=== PATIENT | female | born 1960 | race Caucasian/White ===

== ENCOUNTER 2019-12-23 | Emergency (ER) | payer MEDICARE ==
[~2019-12-23] MED LIST: ACIPHEX20 MG OR; ALEVE220 MG OR; AMOXICILLIN250 M1 PO; AMOXICILLIN500 MG OR; AMOXICILLIN500 MG PO; AUGMENTIN500 MG OR; AUGMENTIN500TAB PO; AUGMENTIN875TAB PO; CELEXA20 MG OR; CELEXA20 MG PO; CELEXA40 MG OR; CIPRO500 MG OR; CIPROFLOXACN500 MG PO; CITALOPRAM10 MG PO; CLONAZEPAM0.5 MG OR; CLONAZEPAM0.5 MG PO; COMBIVENT IN; DEXILANT30 MG OR; DUONEB; DUONEB IN; DUONEB INH; ERY-TAB333 MG OR; FLEXERIL OR; GABAPENTIN100 MG OR; HYDROCO/APAP1 TA9 OR; HYDROCOD/HOM1 ML OR; KLONOPIN0.5 MG OR; LEVAQUIN750 MG PO; LORTAB 7.57.5 MG PO; LORTAB5 PO; MEDDOSEPAK OR; MEDDOSEPAK PO; NAPROSYN500 MG PO; NEBULIZE2; PREDNISONE10 MG PO; PRILOSEC20 MG/CAP PO; PRILOSEC40 MG OR; PROAIR HFA; PROAIR HFA IN; PROVENTIL HFA IN; PROVENTIL HFA INH; ROBITUSSIN AC10 ML OR; ULTRAM50 M1 PO; UNABLE TO RECONCILE; VENTOLIN HF1 IN; VENTOLIN HFA IN; VICODIN; [UNRECOGNIZED DRUG - REMARK]
[2019-12-23] MEDS ORDERED: AMOX/K CLAV875 M1 PO (23:19)
== END 2019-12-23 23:34 | disposition home or self-care (01) ==
DX: J02.9 Acute pharyngitis, unspecified (principal); J44.9 Chronic obstructive pulmonary disease, unspecified; F17.200 Nicotine dependence, unspecified, uncomplicated

== ENCOUNTER 2021-08-12 20:43 | Emergency (ER) | payer MEDICARE ==
[~2021-08-12 20:43] MED LIST changes: +AMOX/K CLAV875 M1 PO
[2021-08-13] MEDS ORDERED: KEFLEX500 MG PO (07:01)
[2021-08-13] MEDS ORDERED: ONDANSETRON4 MG PO (07:01)
[2021-08-13] MEDS ORDERED: MEDDOSEPAK PO (07:01)
== END 2021-08-12 22:08 | disposition left against medical advice (07) ==
LOC: ED 20:43 → LWOBS 22:08 → ED 22:08
DX: Z53.21 Procedure and treatment not carried out due to patient leaving prior to being seen by health care provider (principal)

== ENCOUNTER 2021-09-30 14:56 | Emergency (ER) | payer MEDICARE ==
[~2021-09-30] VITALS: Ht 172.7 cm; Wt 75.0 kg
[~2021-09-30 14:56] MED LIST changes: +KEFLEX500 MG PO; +ONDANSETRON4 MG PO
[2021-09-30 16:39] LABS: HEMATOCRIT 44.1 % (37.0-47.0); HEMOGLOBIN 15.1 g/dl (12.0-16.0); IMMATURE GRANULOCYTES 0.3 % (0.0-5.0); MEAN CELL VOLUME 99.5 fL CALC (80.0-100.0); MEAN CORPUSCULAR HGB 34.1 pG CALC (26.0-32.0); MEAN CORPUSCULAR HGB CONC 34.2 g/dL CAL (32.0-36.0); NEUT# 10.73 thou/uL (2.00-7.15); RED BLOOD COUNT 4.43 mill/uL (4.20-5.60); RED CELL DISTRI WIDTH 12.3 % (11.5-15.5)
[2021-09-30 16:52] LABS: ALBUMIN 3.5 g/dL (3.2-5.0); ALKALINE PHOSPHATASE 111 u/l (38-126); BUN 4 mg/dL (7-17); BUN/CREATININE RATIO 7 (12-20 (CALC)); CHLORIDE 85 mmol/l (95-108); CREATININE 0.6 mg/dL (0.5-1.0); GFR > 60 ML/MIN (>=60 (CALC)); GFR FOR AFR.AMER. > 60 ML/MIN (>=60 (CALC)); SGOT/AST 25 u/l (14-36); SODIUM 136 mmol/l (137-146); TOTAL PROTEIN 6.9 g/dL (6.3-8.2)
[2021-09-30 17:01] LABS: ANION GAP 10 (6-22 (CALC)); BILIRUBIN, TOTAL 0.4 mg/dL (0.0-1.4); CARBON DIOXIDE 43 mmol/l (22-30); POTASSIUM 2.4 mmol/l (3.5-5.1)
[2021-09-30 18:41] LABS: URINE BILIRUBIN - DIPSTICK NEGATIVE (NEGATIVE); URINE BLOOD DIPSTICK NEGATIVE (NEGATIVE); URINE COLOR YELLOW; URINE GLUCOSE - DIPSTICK NEGATIVE (NEGATIVE); URINE KETONE NEGATIVE (NEGATIVE); URINE PH 6.5 (4.5-8.0); URINE PROTEIN - DIPSTICK NEGATIVE (NEG-TRACE); URINE UROBILINOGEN - DIPSTICK 0.2 E.U./dL (0.2)
[2021-09-30 18:46] LABS: URINE LEUK ESTERASE SMALL (NEGATIVE); URINE NITRITE - DIPSTICK NEGATIVE (Negative)
[2021-09-30 18:56] LABS: URINE SQUAMOUS EPITHELIAL CELL FEW EPI/hpf (0-FEW)
[2021-09-30] MEDS ORDERED: KEFLEX500 MG PO (19:15)
[2021-09-30 22:11] VITALS: BP 182/91
== END 2021-09-30 22:52 | disposition home or self-care (01) ==
LOC: ED 14:56
PROVIDERS: Emergency Medicine
DX: N39.0 Urinary tract infection, site not specified (principal); E87.6 Hypokalemia; K21.9 Gastro-esophageal reflux disease without esophagitis; J44.9 Chronic obstructive pulmonary disease, unspecified; F17.200 Nicotine dependence, unspecified, uncomplicated

== ENCOUNTER 2021-10-27 08:07 | Day surgery (SDC) | payer MEDICARE ==
[~2021-10-27] VITALS: Ht 172.7 cm; Wt 57.2 kg
[~2021-10-27 08:07] MED LIST changes: +ALBUTEROL1.25 MG/3 PO; +LORTAB 1010 MG PO
[2021-10-27 10:37] VITALS: BP 139/74
== END 2021-10-27 10:43 | disposition home or self-care (01) ==
LOC: ENDO 08:07 → ORM 11:00 → ENDO 11:00
PROVIDERS: ATTEND Surgery
PROC: 0DBB8ZX Excision of Ileum, Via Natural or Artificial Opening Endoscopic, Diagnostic (ICD-10-PCS; principal; 2021-10-27)
PROC: 0DBE8ZX Excision of Large Intestine, Via Natural or Artificial Opening Endoscopic, Diagnostic (ICD-10-PCS; 2021-10-27)
DX: K52.9 Noninfective gastroenteritis and colitis, unspecified (principal); J44.9 Chronic obstructive pulmonary disease, unspecified; K21.9 Gastro-esophageal reflux disease without esophagitis; F17.210 Nicotine dependence, cigarettes, uncomplicated

== ENCOUNTER 2021-11-21 20:24 | Emergency (ER) | payer MEDICARE ==
[~2021-11-21] VITALS: Ht 172.7 cm; Wt 57.0 kg
[2021-11-21 20:30] VITALS: BP 142/79
[2021-11-21 20:57] LABS: HEMATOCRIT 44.5 % (37.0-47.0); HEMOGLOBIN 15.1 g/dl (12.0-16.0); IMMATURE GRANULOCYTES 0.4 % (0.0-5.0); MEAN CELL VOLUME 105.5 fL CALC (80.0-100.0); MEAN CORPUSCULAR HGB 35.8 pG CALC (26.0-32.0); MEAN CORPUSCULAR HGB CONC 33.9 g/dL CAL (32.0-36.0); NEUT# 5.9 thou/uL (2.00-7.15); RED BLOOD COUNT 4.22 mill/uL (4.20-5.60); RED CELL DISTRI WIDTH 13.3 % (11.5-15.5)
[2021-11-21 21:00] VITALS: BP 154/74
[2021-11-21 21:20] LABS: ALBUMIN 3.7 g/dL (3.2-5.0); ALKALINE PHOSPHATASE 136 u/l (38-126); BUN 4 mg/dL (7-17); BUN/CREATININE RATIO 10 (12-20 (CALC)); CHLORIDE 88 mmol/l (95-108); CREATININE 0.4 mg/dL (0.5-1.0); GFR > 60 ML/MIN (>=60 (CALC)); GFR FOR AFR.AMER. > 60 ML/MIN (>=60 (CALC)); POTASSIUM 3.2 mmol/l (3.5-5.1); SGOT/AST 29 u/l (14-36); SODIUM 135 mmol/l (137-146); TOTAL PROTEIN 6.8 g/dL (6.3-8.2)
[2021-11-21 21:25] LABS: ANION GAP 12 (6-22 (CALC)); CARBON DIOXIDE 38 mmol/l (22-30)
[2021-11-21 21:27] LABS: BILIRUBIN, TOTAL 0.2 mg/dL (0.0-1.4)
[2021-11-21 21:32] LABS: MYOGLOBIN 21 ng/mL (0 - 62)
[2021-11-21 21:51] LABS: TSH, 3RD GENERATION 0.91 uIU/mL (0.47 - 4.68)
[2021-11-21 21:52] LABS: URINE BILIRUBIN - DIPSTICK NEGATIVE (NEGATIVE); URINE BLOOD DIPSTICK NEGATIVE (NEGATIVE); URINE COLOR YELLOW; URINE GLUCOSE - DIPSTICK NEGATIVE (NEGATIVE); URINE KETONE NEGATIVE (NEGATIVE); URINE LEUK ESTERASE MODERATE (NEGATIVE); URINE NITRITE - DIPSTICK NEGATIVE (Negative); URINE PH 6.5 (4.5-8.0); URINE PROTEIN - DIPSTICK NEGATIVE (NEG-TRACE); URINE SPECIFIC GRAVITY <=1.005; URINE UROBILINOGEN - DIPSTICK 0.2 E.U./dL (0.2)
[2021-11-21 21:59] LABS: URINE RBC 0-2 RBC/hpf (0-5); URINE SQUAMOUS EPITHELIAL CELL FEW EPI/hpf (0-FEW)
[2021-11-21 23:00] VITALS: BP 167/87
[2021-11-21 23:30] VITALS: BP 172/92
[2021-11-22] VITALS: BP 174/83
[2021-11-22 00:30] VITALS: BP 161/84
[2021-11-22 00:44] VITALS: BP 161/84
== END 2021-11-22 00:49 | disposition home or self-care (01) ==
LOC: ED 20:24
PROVIDERS: Emergency Medicine
DX: E87.6 Hypokalemia (principal); J44.9 Chronic obstructive pulmonary disease, unspecified; K52.9 Noninfective gastroenteritis and colitis, unspecified; K21.9 Gastro-esophageal reflux disease without esophagitis; F17.200 Nicotine dependence, unspecified, uncomplicated

== ENCOUNTER 2021-12-01 07:05 | Day surgery (SDC) | payer MEDICARE ==
[~2021-12-01 07:05] MED LIST changes: +MULTI FOR HER PO; +OS-CAL 500500 M1 PO; +POTASSIUM99 MG PO
[2021-12-01 09:23] VITALS: BP 139/65
== END 2021-12-01 09:26 | disposition home or self-care (01) ==
LOC: ENDO 07:05 → ORM 08:55 → ENDO 08:55 → ORM 09:45
PROVIDERS: ATTEND Surgery
PROC: 0DJ08ZZ Inspection of Upper Intestinal Tract, Via Natural or Artificial Opening Endoscopic (ICD-10-PCS; principal; 2021-12-01)
DX: R13.10 Dysphagia, unspecified (principal); K57.10 Diverticulosis of small intestine without perforation or abscess without bleeding; K29.70 Gastritis, unspecified, without bleeding; K44.9 Diaphragmatic hernia without obstruction or gangrene

== ENCOUNTER 2022-01-25 19:16 | Emergency (ER) | payer MEDICARE ==
[2022-01-25] VITALS (8 sets, daily range): BP systolic 107–158; BP diastolic 60–96
[~2022-01-25] VITALS: Ht 172.7 cm; Wt 59.0 kg
[2022-01-25 20:43] LABS: URINE BLOOD DIPSTICK NEGATIVE (NEGATIVE); URINE GLUCOSE - DIPSTICK NEGATIVE (NEGATIVE); URINE KETONE TRACE mg/dL (NEGATIVE); URINE LEUK ESTERASE NEGATIVE (NEGATIVE); URINE PH 5.5 (4.5-8.0); URINE PROTEIN - DIPSTICK 30 mg/dL (NEG-TRACE); URINE SPECIFIC GRAVITY 1.025
[2022-01-25 20:44] LABS: HEMATOCRIT 45.9 % (37.0-47.0); HEMOGLOBIN 15.6 g/dl (12.0-16.0); IMMATURE GRANULOCYTES 0.2 % (0.0-5.0); MEAN CELL VOLUME 101.5 fL CALC (80.0-100.0); MEAN CORPUSCULAR HGB 34.5 pG CALC (26.0-32.0); NEUT# 7.42 thou/uL (2.00-7.15); RED BLOOD COUNT 4.52 mill/uL (4.20-5.60); RED CELL DISTRI WIDTH 11.3 % (11.5-15.5)
[2022-01-25 20:47] LABS: URINE BILIRUBIN - DIPSTICK SMALL (NEGATIVE); URINE COLOR DK. YELLOW; URINE NITRITE - DIPSTICK NEGATIVE (Negative)
[2022-01-25 20:49] LABS: URINE RBC 0-2 RBC/hpf (0-5); URINE SQUAMOUS EPITHELIAL CELL FEW EPI/hpf (0-FEW)
[2022-01-25 21:00] LABS: ALBUMIN 3.3 g/dL (3.2-5.0); AMYLASE 58 u/l (30-110); ANION GAP 12 (6-22 (CALC)); BUN 4 mg/dL (7-17); BUN/CREATININE RATIO 8 (12-20 (CALC)); CARBON DIOXIDE 37 mmol/l (22-30); CHLORIDE 89 mmol/l (95-108); CREATININE 0.5 mg/dL (0.5-1.0); GFR > 60 ML/MIN (>=60 (CALC)); GFR FOR AFR.AMER. > 60 ML/MIN (>=60 (CALC)); LIPASE 121 u/l (23-300); POTASSIUM 2.7 mmol/l (3.5-5.1); SODIUM 134 mmol/l (137-146); TOTAL PROTEIN 6.3 g/dL (6.3-8.2)
[2022-01-25 21:01] LABS: ALKALINE PHOSPHATASE 209 u/l (38-126); BILIRUBIN, TOTAL 0.3 mg/dL (0.0-1.4); SGOT/AST 80 u/l (14-36)
[2022-01-25] MEDS ORDERED: POTASSIUM CHLO20 ME1 PO (23:49)
[2022-01-25] MEDS ORDERED: PROMETHAZINE HY25 M1 PO (23:49)
[2022-01-26] VITALS: BP 138/73
== END 2022-01-26 | disposition home or self-care (01) ==
LOC: ED 19:16
PROVIDERS: Family Medicine
DX: R11.2 Nausea with vomiting, unspecified (principal); E87.6 Hypokalemia; J44.9 Chronic obstructive pulmonary disease, unspecified; K21.9 Gastro-esophageal reflux disease without esophagitis; F17.200 Nicotine dependence, unspecified, uncomplicated; Z20.822 Contact with and (suspected) exposure to COVID-19
CPT/HCPCS: Q9967

== ENCOUNTER 2022-03-12 15:07 | Emergency (ER) | payer MEDICARE ==
[~2022-03-12] VITALS: Ht 172.7 cm; Wt 57.6 kg
[~2022-03-12 15:07] MED LIST changes: +ALBUTEROL SUL0.083 % IN; -ALBUTEROL1.25 MG/3 PO; +POTASSIUM CHLO20 ME1 PO; +PROMETHAZINE HY25 M1 PO
[2022-03-12 15:54] LABS: HEMATOCRIT 43.4 % (37.0-47.0); HEMOGLOBIN 15.1 g/dl (12.0-16.0); IMMATURE GRANULOCYTES 0.5 % (0.0-5.0); MEAN CELL VOLUME 103.3 fL CALC (80.0-100.0); MEAN CORPUSCULAR HGB CONC 34.8 g/dL CAL (32.0-36.0); NEUT# 5.88 thou/uL (2.00-7.15); RED BLOOD COUNT 4.2 mill/uL (4.20-5.60); RED CELL DISTRI WIDTH 12.3 % (11.5-15.5)
[2022-03-12 16:07] LABS: ALBUMIN 3.2 g/dL (3.2-5.0); ALKALINE PHOSPHATASE 234 u/l (38-126); AMYLASE 61 u/l (30-110); BUN 3 mg/dL (7-17); BUN/CREATININE RATIO 6 (12-20 (CALC)); CARBON DIOXIDE 37 mmol/l (22-30); CHLORIDE 88 mmol/l (95-108); CREATININE 0.5 mg/dL (0.5-1.0); GFR FOR AFR.AMER. > 60 ML/MIN (>=60 (CALC)); GFR OTHER RACES > 60 ML/MIN (>=60 (CALC)); LIPASE 54 u/l (23-300); SODIUM 134 mmol/l (137-146); TOTAL PROTEIN 6.5 g/dL (6.3-8.2)
[2022-03-12 16:12] LABS: ANION GAP 13 (6-22 (CALC)); BILIRUBIN, TOTAL 1.3 mg/dL (0.0-1.4); POTASSIUM 3.5 mmol/l (3.5-5.1); SGOT/AST 235 u/l (14-36)
[2022-03-12 16:19] LABS: MYOGLOBIN 59 ng/mL (0 - 62)
[2022-03-12 16:28] LABS: URINE BILIRUBIN - DIPSTICK NEGATIVE (NEGATIVE); URINE BLOOD DIPSTICK NEGATIVE (NEGATIVE); URINE COLOR YELLOW; URINE GLUCOSE - DIPSTICK NEGATIVE (NEGATIVE); URINE KETONE NEGATIVE (NEGATIVE); URINE LEUK ESTERASE MODERATE (NEGATIVE); URINE NITRITE - DIPSTICK NEGATIVE (Negative); URINE PH 6.5 (4.5-8.0); URINE PROTEIN - DIPSTICK NEGATIVE (NEG-TRACE); URINE SPECIFIC GRAVITY <=1.005
[2022-03-12 16:34] LABS: URINE BACTERIA FEW hpf; URINE SQUAMOUS EPITHELIAL CELL FEW EPI/hpf (0-FEW); URINE WBC 50-100 WBC/hpf (0-5)
[2022-03-12 18:40] VITALS: BP 135/84
[2022-03-12] MEDS ORDERED: ONDANSETRON4 MG PO (18:40)
[2022-03-12] MEDS ORDERED: KEFLEX500 MG PO (18:40)
== END 2022-03-12 18:55 | disposition left against medical advice (07) ==
LOC: ED 15:07
PROVIDERS: Emergency Medicine
DX: A41.9 Sepsis, unspecified organism (principal); R07.9 Chest pain, unspecified; N39.0 Urinary tract infection, site not specified; E86.0 Dehydration; R00.0 Tachycardia, unspecified; J44.9 Chronic obstructive pulmonary disease, unspecified; K44.9 Diaphragmatic hernia without obstruction or gangrene; K21.9 Gastro-esophageal reflux disease without esophagitis; F17.200 Nicotine dependence, unspecified, uncomplicated; Z91.19 Patient's noncompliance with other medical treatment and regimen
CPT/HCPCS: Q9967

== ENCOUNTER 2022-03-15 11:42 | Observation (INO) | payer MEDICARE ==
[2022-03-15] VITALS (12 sets, daily range): BP systolic 73–154; BP diastolic 11–93
[~2022-03-15] VITALS: Ht 172.7 cm; Wt 58.0 kg
--- NOTE | 2022-03-15 12:05 | NUR ---
PATIENT TO ROOM VIA WHEELCHAIR.
[2022-03-15 12:39] LABS: HEMATOCRIT 43.6 % (37.0-47.0); HEMOGLOBIN 14.7 g/dl (12.0-16.0); IMMATURE GRANULOCYTES 0.4 % (0.0-5.0); MEAN CELL VOLUME 106.3 fL CALC (80.0-100.0); MEAN CORPUSCULAR HGB 35.9 pG CALC (26.0-32.0); MEAN CORPUSCULAR HGB CONC 33.7 g/dL CAL (32.0-36.0); NEUT# 6.81 thou/uL (2.00-7.15); RED BLOOD COUNT 4.1 mill/uL (4.20-5.60); RED CELL DISTRI WIDTH 12.3 % (11.5-15.5); URINE BILIRUBIN - DIPSTICK NEGATIVE (NEGATIVE); URINE BLOOD DIPSTICK NEGATIVE (NEGATIVE); URINE COLOR YELLOW; URINE GLUCOSE - DIPSTICK NEGATIVE (NEGATIVE); URINE KETONE NEGATIVE (NEGATIVE); URINE LEUK ESTERASE NEGATIVE (NEGATIVE); URINE PROTEIN - DIPSTICK NEGATIVE (NEG-TRACE)
[2022-03-15 12:43] LABS: URINE NITRITE - DIPSTICK NEGATIVE (Negative)
--- NOTE | 2022-03-15 12:48 | NUR ---
PATIENT EXPRESSES PAIN AND NAUSA RELIEF FROM MEDICATIONS
[2022-03-15 12:56] LABS: ALBUMIN 3.1 g/dL (3.2-5.0); ALKALINE PHOSPHATASE 205 u/l (38-126); AMYLASE 61 u/l (30-110); ANION GAP 12 (6-22 (CALC)); BILIRUBIN, TOTAL 0.8 mg/dL (0.0-1.4); BUN < 2 mg/dL (7-17); CHLORIDE 89 mmol/l (95-108); CREATININE 0.5 mg/dL (0.5-1.0); GFR FOR AFR.AMER. > 60 ML/MIN (>=60 (CALC)); GFR OTHER RACES > 60 ML/MIN (>=60 (CALC)); LIPASE 50 u/l (23-300); POTASSIUM 3.9 mmol/l (3.5-5.1); SGOT/AST 278 u/l (14-36); SODIUM 137 mmol/l (137-146); TOTAL PROTEIN 6.2 g/dL (6.3-8.2)
[2022-03-15 12:57] LABS: ACT PARTIAL THROMBO TIME 23.4 SECONDS (20.0-32.5); PROTHROMBIN TIME 10.8 SECONDS (9.0-12.5)
[2022-03-15 13:09] LABS: CARBON DIOXIDE 40 mmol/l (22-30)
--- NOTE | 2022-03-15 13:45 | NUR ---
Reassessment of patient completed. No distress noted.
--- NOTE | 2022-03-15 14:45 | NUR ---
Reassessment of patient completed. No distress noted.
--- NOTE | 2022-03-15 15:54 | NUR ---
Reassessment of patient completed. No distress noted.
--- NOTE | 2022-03-15 16:36 | NUR ---
PATIENT ESCORTED TO ROOM 274 ON TELE VIA WHEELCHAIR AND BEDSIDE REPORT GIVEN TO MAXINE. VERBALIZED UNDERSTANDING.
--- NOTE | 2022-03-15 17:35 | NUR ---
PT ARRIVED ON UNIT @ 1620 TRANSPORTED VIA W/C BY ED STAFF, BEDSIDE REPORT GIVEN, PT ALERT AND ORIENTED C/O BACK PAIN @ 03/14 AND BEING HUNGRY DEMANDING FOOD NOW STATING SHE HAS NOT EATEN SINCE THIS AM AND LIQUIDS ALONE WILL NOT BE SUFFICIENT. EDUCATED ON HER CONDITION AND THE REASON MD ONLY ORDERED LIQUIDS, SHE WAS OFFERED CLEAR LIQUIDS, NOW SETTLED IN BED, WILL CONTINUE TO MONITOR.
--- NOTE | 2022-03-15 19:00 | NUR ---
PT ANXIOUS TO HAVE SAME NARCOTICS SHE TAKES AT HOME AND STATES SHE WILL ASK HER SPOUSE TO BRING IN HER MED. INFORMED OF PROTOCOL HERE AND ADVISED HER NOT TO TAKE ANY HOME MED WHILE IN HOSPITAL. DR LAWTON INFORMED OF CONCERN AND ORDERED MEDS, PT IS SATISFIED AND HAPPY.
--- NOTE | 2022-03-15 20:02 | NUR ---
MEDICATED FOR PAIN PER DOCTOR'S ORDER. PATIENT AMBULATORY USES THE BATHROOM WITHOUT ASSISTANCE. NO SOB NOTED.
[2022-03-16] VITALS (9 sets, daily range): BP systolic 149–163; BP diastolic 70–83
--- NOTE | 2022-03-16 | NUR ---
UP OUT OF BED AMBULATING IN HALLWAY AD ANDRAE. NO ACUTE DISTRESS NOTED IV SITE AT R AC OUT OF VEIN NO BLEEDING OR SWELLING NOTED AT OLD IV SITE. PATIENT RETURNED TO ROOM 274 NEW IV STARTED BY HAILEE FRANK SITE HEALTHY PATIENT TOLERATED WELL.
--- NOTE | 2022-03-16 03:00 | NUR ---
AWAKE AND ALERT COMPLAIN OF PAIN AT LOWER BACK AND NAUSEA. MEDICATED ORDERED. WILL CONTINUE TO MONITOR.
--- NOTE | 2022-03-16 04:12 | NUR ---
RESTING QUIETLY NO DISTRESS NOTED OR SOB NOTED POSTURE RELAXED. WILL CONTINUE TO MONITOR
[2022-03-16 05:01] LABS: IMMATURE GRANULOCYTES 0.4 % (0.0-5.0); MEAN CELL VOLUME 104.5 fL CALC (80.0-100.0); MEAN CORPUSCULAR HGB 36.3 pG CALC (26.0-32.0); MEAN CORPUSCULAR HGB CONC 34.8 g/dL CAL (32.0-36.0); NEUT# 4.28 thou/uL (2.00-7.15); RED BLOOD COUNT 3.33 mill/uL (4.20-5.60); RED CELL DISTRI WIDTH 12.3 % (11.5-15.5)
[2022-03-16 05:14] LABS: HEMATOCRIT 34.8 % (37.0-47.0); HEMOGLOBIN 12.1 g/dl (12.0-16.0)
[2022-03-16 05:26] LABS: ALKALINE PHOSPHATASE 178 u/l (38-126); BILIRUBIN, TOTAL 0.7 mg/dL (0.0-1.4); CARBON DIOXIDE 36 mmol/l (22-30); CHLORIDE 96 mmol/l (95-108); CREATININE 0.4 mg/dL (0.5-1.0); GFR FOR AFR.AMER. > 60 ML/MIN (>=60 (CALC)); GFR OTHER RACES > 60 ML/MIN (>=60 (CALC)); SGOT/AST 222 u/l (14-36); SODIUM 136 mmol/l (137-146)
[2022-03-16 05:36] LABS: ALBUMIN 2.4 g/dL (3.2-5.0); ANION GAP 7 (6-22 (CALC)); MAGNESIUM 1.4 mg/dL (1.6-2.3); POTASSIUM 2.6 mmol/l (3.5-5.1); TOTAL PROTEIN 4.9 g/dL (6.3-8.2)
[2022-03-16 05:37] LABS: BUN 2 mg/dL (7-17); BUN/CREATININE RATIO 5 (12-20 (CALC))
--- NOTE | 2022-03-16 06:58 | NUR ---
PT REPORT RECIEVED FROM DIESEL SERVICE JOURNEYMAN
--- NOTE | 2022-03-16 07:49 | NUR ---
PT CONSENTED TO RECEIVE PNEUMONIA VACCINE. HAD PNEUMOVAX IN 2019 AND PREVNAR IN 2018... NO FURTHER INDICATED UNTIL OVER AGE 66
--- NOTE | 2022-03-16 08:00 | NUR ---
PT RESTING IN LOW FOWLERS POSITION. PT ASSESSMENT AND VS COMPLETED. HEART RHYTHM ABNORMAL. TELE IN PLACE. RESPIRATIONS UNLABORED . IV SITE NOTED TO RIGHT AC. FLUSHED. PT MEDICATED PER EMAR FOR NAUSEA. AL SAFETY PRECAUTIONS IN PLACE.
--- NOTE | 2022-03-16 11:18 | NUR ---
new iv started 20 LAC.
[2022-03-16] MEDS ORDERED: ANORO ELLIPTA 61 AER IN (13:11)
[2022-03-16] MEDS ORDERED: PROBIOTI2 PO (13:14)
--- NOTE | 2022-03-16 13:43 | NUR ---
PATIENT TOOK A SHOWER WITHOUT NOTIFING STAFF. PATIENT ACCIDENTLY REMOVED HER IV 20LAC. A NEW IV STARTED 20 RAC. ICE PACK GIVEN FOR IV INFUSING POTASSIUM DUE TO BURNING SENSATION.
--- NOTE | 2022-03-16 15:52 | NUR ---
PT RESTING IN LOW FOWLERS POSITION. ALL SAFETY PRECAUTIONS IN PLACE.
--- NOTE | 2022-03-16 15:57 | NUR ---
PT POTASSIUM FROM 1000 STILL RUNNING . PT REFUSES RATE TO RUN FASTER DUE TO PAIN . WILL REPORT TO [employer] OPERATIONS.
--- NOTE | 2022-03-16 17:09 | NUR ---
PT STATES POTASSIUM IS BURNING HER . PT STATES NO LONGER WANTS TO CONTINUE DUE TO PAIN. PROVIDER HVAC SHEET METAL INSTALLER INFORMED.
--- NOTE | 2022-03-16 20:07 | NUR ---
PATIENT LYING IN BED ALERT ORIENTED X 4 RECENTLY USED BATHROOM MILD SOB NOTED WITH ACTIVITY PLACED ON O2 AT 2LPM LUNG SOUNDS WITH SOFT EXPIRATORY WHEEZE BILATERALLY AEROSOL NEBULIZER TREATMENT PROVIDED HR SINUS TACHYCARDIA IN THE LOW 120'S.
--- NOTE | 2022-03-16 22:03 | NUR ---
ALERT AND ORIENTED X4 AMBULATING IN HALLWAY. GAIT STRONG AND STEADY NO SOB NOTED AFEECT SMILING.
--- NOTE | 2022-03-16 23:26 | NUR ---
RESTING QUIETLY IN BED WATCHING TV POSTURE RELAXED. RESPIRATIONS EVEN AND UNLABORED.
[2022-03-17] VITALS (8 sets, daily range): BP systolic 139–166; BP diastolic 68–77
--- NOTE | 2022-03-17 03:04 | NUR ---
PT IS RESTING QUIETLY IN BED, DENIES PAIN OR DISCOMFORT. HEART RATE 98, MONITER READING NORMAL SINUS RHYTHYM. WILL CONTINUE TO MONITOR.
[2022-03-17 04:30] LABS: HEMATOCRIT 33.8 % (37.0-47.0); HEMOGLOBIN 11.9 g/dl (12.0-16.0); IMMATURE GRANULOCYTES 1.1 % (0.0-5.0); MEAN CELL VOLUME 104.3 fL CALC (80.0-100.0); MEAN CORPUSCULAR HGB 36.7 pG CALC (26.0-32.0); MEAN CORPUSCULAR HGB CONC 35.2 g/dL CAL (32.0-36.0); NEUT# 3.63 thou/uL (2.00-7.15); RED BLOOD COUNT 3.24 mill/uL (4.20-5.60); RED CELL DISTRI WIDTH 12.3 % (11.5-15.5)
[2022-03-17 04:43] LABS: ALBUMIN 2.4 g/dL (3.2-5.0); ALKALINE PHOSPHATASE 193 u/l (38-126); BILIRUBIN, TOTAL 0.5 mg/dL (0.0-1.4); CARBON DIOXIDE 34 mmol/l (22-30); CHLORIDE 100 mmol/l (95-108); CREATININE 0.4 mg/dL (0.5-1.0); GFR FOR AFR.AMER. > 60 ML/MIN (>=60 (CALC)); GFR OTHER RACES > 60 ML/MIN (>=60 (CALC)); SGOT/AST 174 u/l (14-36); SODIUM 137 mmol/l (137-146)
[2022-03-17 04:57] LABS: ANION GAP 7 (6-22 (CALC)); BUN 2 mg/dL (7-17); BUN/CREATININE RATIO 5 (12-20 (CALC)); MAGNESIUM 2.2 mg/dL (1.6-2.3); POTASSIUM 3.6 mmol/l (3.5-5.1)
--- NOTE | 2022-03-17 05:43 | NUR ---
RESTING QUIETLY IN NO ACUTE DISTRESS OR SOB NOTED.
--- NOTE | 2022-03-17 08:22 | NUR ---
PATIENT HEART RATE RUNNING 120S TO 140S, C/O PAIN IN LOWER BACK, GAVE MEDICATION, WALKED IN [place] WITH HR IN 140S, BACK IN ROOM AT REST HR 120S. PHYSICIAN NOTIFIED.
--- NOTE | 2022-03-17 12:00 | NUR ---
RESTING IN ROOM, CONTINUES WITH TACHYCARDIA, PHYSICIAN AWARE AND ORDERED ORAL LOPRESSOR, MED WAS GIVEN.
[2022-03-17] MEDS ORDERED: METOPROLOL SUCC50 MG PO (12:30)
--- NOTE | 2022-03-17 12:57 | NUR ---
PATIENT DISCHARGED HOME IN STABLE CONDISTION, IV REMOVED, MEDICATIONS AND DISCHARGE INSTRUCTION GONE OVER AND UNDERSTANDING VERBALIZED.
== END 2022-03-17 12:55 | disposition home or self-care (01) ==
LOC: ED 11:42 → ED-I 15:15 → MS2 15:25 → ED 15:25 → MS2 03-17 12:55
PROVIDERS: Nurse Practitioner; ADMIT Hospitalist; ATTEND Hospitalist
DX: K21.9 Gastro-esophageal reflux disease without esophagitis (principal); K44.9 Diaphragmatic hernia without obstruction or gangrene; E86.0 Dehydration; E83.42 Hypomagnesemia; E87.6 Hypokalemia; E83.51 Hypocalcemia; F06.4 Anxiety disorder due to known physiological condition; R00.0 Tachycardia, unspecified; N39.0 Urinary tract infection, site not specified; J44.9 Chronic obstructive pulmonary disease, unspecified; I10 Essential (primary) hypertension; G89.29 Other chronic pain; Z87.891 Personal history of nicotine dependence; Z20.822 Contact with and (suspected) exposure to COVID-19
CPT/HCPCS: J1650; J3475; Q9967

== ENCOUNTER 2022-04-02 09:30 | Emergency (ER) | payer MEDICARE ==
[~2022-04-02] VITALS: Ht 172.7 cm; Wt 57.6 kg
[~2022-04-02 09:30] MED LIST changes: +ANORO ELLIPTA 61 AER IN; +METOPROLOL SUCC50 MG PO; +PROBIOTI2 PO
[2022-04-02 09:35] VITALS: BP 148/89
[2022-04-02 09:58] LABS: IMMATURE GRANULOCYTES 0.5 % (0.0-5.0); MEAN CORPUSCULAR HGB 37.7 pG CALC (26.0-32.0); NEUT# 4.29 thou/uL (2.00-7.15); RED BLOOD COUNT 3.69 mill/uL (4.20-5.60); RED CELL DISTRI WIDTH 13.1 % (11.5-15.5)
[2022-04-02 10:00] LABS: HEMATOCRIT 40.9 % (37.0-47.0); HEMOGLOBIN 13.9 g/dl (12.0-16.0); MEAN CELL VOLUME 110.8 fL CALC (80.0-100.0)
[2022-04-02 10:10] LABS: URINE BILIRUBIN - DIPSTICK NEGATIVE (NEGATIVE); URINE BLOOD DIPSTICK NEGATIVE (NEGATIVE); URINE COLOR YELLOW; URINE GLUCOSE - DIPSTICK NEGATIVE (NEGATIVE); URINE KETONE NEGATIVE (NEGATIVE); URINE LEUK ESTERASE TRACE (NEGATIVE); URINE PH 6.5 (4.5-8.0); URINE PROTEIN - DIPSTICK NEGATIVE (NEG-TRACE); URINE SPECIFIC GRAVITY <=1.005
[2022-04-02 10:12] VITALS: BP 131/77
[2022-04-02 10:15] LABS: URINE NITRITE - DIPSTICK NEGATIVE (Negative)
[2022-04-02 10:22] LABS: ALBUMIN 3.5 g/dL (3.2-5.0); ANION GAP 8 (6-22 (CALC)); BILIRUBIN, TOTAL 0.8 mg/dL (0.0-1.4); BUN 3 mg/dL (7-17); BUN/CREATININE RATIO 6 (12-20 (CALC)); CARBON DIOXIDE 35 mmol/l (22-30); CHLORIDE 96 mmol/l (95-108); CREATININE 0.5 mg/dL (0.5-1.0); GFR FOR AFR.AMER. > 60 ML/MIN (>=60 (CALC)); GFR OTHER RACES > 60 ML/MIN (>=60 (CALC)); SGOT/AST 236 u/l (14-36); SODIUM 137 mmol/l (137-146)
[2022-04-02 10:23] LABS: ALKALINE PHOSPHATASE 296 u/l (38-126)
[2022-04-02 10:30] VITALS: BP 150/64
[2022-04-02 10:51] LABS: TSH, 3RD GENERATION 1.29 uIU/mL (0.47 - 4.68)
[2022-04-02 11:31] VITALS: BP 169/79
[2022-04-02 12:01] VITALS: BP 147/76
[2022-04-02 12:50] VITALS: BP 147/76
[2022-04-02] MEDS ORDERED: OMNI-PAC300 MG PO (12:54)
[2022-04-02] MEDS ORDERED: ZOFRAN4 MG/TAB PO (12:54)
[2022-04-02] MEDS ORDERED: K-TAB20 MEQ PO (14:47)
== END 2022-04-02 12:50 | disposition home or self-care (01) ==
LOC: ED 09:30
PROVIDERS: Family Medicine
DX: R00.0 Tachycardia, unspecified (principal); E86.0 Dehydration; R19.7 Diarrhea, unspecified; R11.2 Nausea with vomiting, unspecified; J44.9 Chronic obstructive pulmonary disease, unspecified; K21.9 Gastro-esophageal reflux disease without esophagitis; K44.9 Diaphragmatic hernia without obstruction or gangrene; F17.200 Nicotine dependence, unspecified, uncomplicated; Z20.822 Contact with and (suspected) exposure to COVID-19

== ENCOUNTER 2022-04-24 08:53 | Emergency (ER) | payer MEDICARE ==
[2022-04-24] VITALS (7 sets, daily range): BP systolic 125–147; BP diastolic 50–77
[~2022-04-24] VITALS: Ht 172.7 cm; Wt 58.1 kg
[~2022-04-24 08:53] MED LIST changes: +K-TAB20 MEQ PO; +OMNI-PAC300 MG PO; +ZOFRAN4 MG/TAB PO
[2022-04-24 09:23] LABS: HEMATOCRIT 42.1 % (37.0-47.0); HEMOGLOBIN 14.5 g/dl (12.0-16.0); IMMATURE GRANULOCYTES 0.3 % (0.0-5.0); MEAN CELL VOLUME 110.5 fL CALC (80.0-100.0); MEAN CORPUSCULAR HGB 38.1 pG CALC (26.0-32.0); MEAN CORPUSCULAR HGB CONC 34.4 g/dL CAL (32.0-36.0); NEUT# 6.79 thou/uL (2.00-7.15); RED BLOOD COUNT 3.81 mill/uL (4.20-5.60); RED CELL DISTRI WIDTH 12.5 % (11.5-15.5)
[2022-04-24 09:40] LABS: GFR FOR AFR.AMER. > 60 ML/MIN (>=60 (CALC)); GFR OTHER RACES > 60 ML/MIN (>=60 (CALC))
[2022-04-24 09:43] LABS: ALBUMIN 3.4 g/dL (3.2-5.0); ALKALINE PHOSPHATASE 242 u/l (38-126); ANION GAP 11 (6-22 (CALC)); BILIRUBIN, TOTAL 1.2 mg/dL (0.0-1.4); BUN 4 mg/dL (7-17); BUN/CREATININE RATIO 9 (12-20 (CALC)); CARBON DIOXIDE 36 mmol/l (22-30); CHLORIDE 93 mmol/l (95-108); CREATININE 0.4 mg/dL (0.5-1.0); GFR FOR AFR.AMER. > 60 ML/MIN (>=60 (CALC)); GFR OTHER RACES > 60 ML/MIN (>=60 (CALC)); LIPASE 50 u/l (23-300); SGOT/AST 270 u/l (14-36); SODIUM 137 mmol/l (137-146); TOTAL PROTEIN 6.7 g/dL (6.3-8.2)
[2022-04-24] MEDS ORDERED: ZOFRAN4 MG/TAB PO (11:02)
[2022-04-24] MEDS ORDERED: K-TAB20 MEQ PO (11:02)
== END 2022-04-24 11:02 | disposition left against medical advice (07) ==
LOC: ED 08:53
PROVIDERS: Family Medicine
DX: E87.6 Hypokalemia (principal); E87.2 Acidosis; R11.2 Nausea with vomiting, unspecified; Z53.29 Procedure and treatment not carried out because of patient's decision for other reasons; Z20.822 Contact with and (suspected) exposure to COVID-19
CPT/HCPCS: Q9967

== ENCOUNTER 2022-04-28 12:10 | Emergency (ER) | payer MEDICARE ==
[2022-04-29] MEDS ORDERED: LORTAB 1010 MG PO (10:28)
== END 2022-04-28 12:20 | disposition left against medical advice (07) ==
LOC: ED 12:10 → LWOBS 12:19
DX: Z53.21 Procedure and treatment not carried out due to patient leaving prior to being seen by health care provider (principal)

== ENCOUNTER 2022-04-29 04:02 | Inpatient (IN) | payer MEDICARE ==
[~2022-04-29] VITALS: Ht 172.7 cm; Wt 58.0 kg
[2022-04-29] VITALS (119 sets, daily range): BP systolic 86–187; BP diastolic 57–109
--- NOTE | 2022-04-29 04:02 | NUR ---
PT TAKEN TO ROOM 6 VIA W/C.
[2022-04-29 04:56] LABS: HEMATOCRIT 42.1 % (37.0-47.0); HEMOGLOBIN 14.6 g/dl (12.0-16.0); MEAN CELL VOLUME 109.4 fL CALC (80.0-100.0); MEAN CORPUSCULAR HGB 37.9 pG CALC (26.0-32.0); MEAN CORPUSCULAR HGB CONC 34.7 g/dL CAL (32.0-36.0); NEUT# 11.56 thou/uL (2.00-7.15); RED BLOOD COUNT 3.85 mill/uL (4.20-5.60); RED CELL DISTRI WIDTH 12.4 % (11.5-15.5)
--- NOTE | 2022-04-29 05:02 | NUR ---
Reassessment of patient completed. No distress noted.
[2022-04-29 05:08] LABS: INTERNATIONAL NORMALIZED RATIO 1.1 RATIO (0.7-1.3)
[2022-04-29 05:10] LABS: ALBUMIN 3.5 g/dL (3.2-5.0); ALKALINE PHOSPHATASE 207 u/l (38-126); ANION GAP 18 (6-22 (CALC)); BILIRUBIN, TOTAL 0.9 mg/dL (0.0-1.4); BUN 2 mg/dL (7-17); BUN/CREATININE RATIO 6 (12-20 (CALC)); CARBON DIOXIDE 33 mmol/l (22-30); CHLORIDE 90 mmol/l (95-108); CPK 89 u/l (30-165); CREATININE 0.4 mg/dL (0.5-1.0); GFR FOR AFR.AMER. > 60 ML/MIN (>=60 (CALC)); GFR OTHER RACES > 60 ML/MIN (>=60 (CALC)); POTASSIUM 3.3 mmol/l (3.5-5.1); SGOT/AST 188 u/l (14-36); SODIUM 138 mmol/l (137-146); TOTAL PROTEIN 6.6 g/dL (6.3-8.2)
[2022-04-29 05:19] LABS: MAGNESIUM 0.4 mg/dL (1.6-2.3)
[2022-04-29 05:22] LABS: MYOGLOBIN 44 ng/mL (0 - 62)
[2022-04-29 05:40] LABS: TSH, 3RD GENERATION 3.61 uIU/mL (0.47 - 4.68)
--- NOTE | 2022-04-29 06:17 | NUR ---
Reassessment of patient completed. No distress noted.
--- NOTE | 2022-04-29 06:45 | NUR ---
Reassessment of patient completed. No distress noted.
[2022-04-29 07:44] LABS: URINE BILIRUBIN - DIPSTICK NEGATIVE (NEGATIVE); URINE BLOOD DIPSTICK NEGATIVE (NEGATIVE); URINE COLOR YELLOW; URINE GLUCOSE - DIPSTICK NEGATIVE (NEGATIVE); URINE KETONE NEGATIVE (NEGATIVE); URINE LEUK ESTERASE NEGATIVE (NEGATIVE); URINE PROTEIN - DIPSTICK NEGATIVE (NEG-TRACE); URINE SPECIFIC GRAVITY <=1.005; URINE UROBILINOGEN - DIPSTICK 0.2 E.U./dL (0.2)
[2022-04-29 07:45] LABS: URINE NITRITE - DIPSTICK NEGATIVE (Negative)
--- NOTE | 2022-04-29 10:22 | NUR ---
REPORT RECEIVED FROM RICA FRANK.
[2022-04-29] MEDS ORDERED: LORTAB 1010 MG PO (10:28)
--- NOTE | 2022-04-29 12:45 | NUR ---
PT IN ROOM ON MONITOR PENDING ADMISSION, CARDIZEM DRIP RUNNING AND PT RECEIVING IV ANTIBIOTICS, WILL CONT TO MONITOR.
--- NOTE | 2022-04-29 14:29 | NUR ---
REPORT CALLED TO ICU.
--- NOTE | 2022-04-29 15:23 | NUR ---
Admission Note Report Given to: DIANE RN Transported by: Wheelchair X Stretcher Transported with: X Nurse Transporter X Patent IV X O2 X Toolsmith Location: X ICU MS2 PT ADMITTED TO ICU VIA STRETCHER BY RN.
[2022-04-29 17:04] LABS: ANION GAP 13 (6-22 (CALC)); CARBON DIOXIDE 29 mmol/l (22-30); CHLORIDE 98 mmol/l (95-108); CREATININE 0.3 mg/dL (0.5-1.0); GFR FOR AFR.AMER. > 60 ML/MIN (>=60 (CALC)); GFR OTHER RACES > 60 ML/MIN (>=60 (CALC)); SODIUM 136 mmol/l (137-146)
[2022-04-29 17:05] LABS: BUN 2 mg/dL (7-17); BUN/CREATININE RATIO 7 (12-20 (CALC)); MAGNESIUM 2.3 mg/dL (1.6-2.3)
--- NOTE | 2022-04-29 17:07 | NUR ---
pt to unit from ER, ambulated with minimal assist to bed, up to BSC with SBA, moderate, soft stool, pt c/o "diarrhea" for several months, she is AO, nervous and fidgety upon arrival but calm and cooperative at this time, resting with no distress, cardizem gtt infusing, HR slowly coming down, now mid 90's, tylenol previously given for c/o neck pain
--- NOTE | 2022-04-29 19:15 | NUR ---
awake. c/o "some diarrhea." night monitor shows sinus tach pvcs. ivf infusing well. po fluids taken well. voided per bsc. fall precautions cont.
--- NOTE | 2022-04-29 20:30 | NUR ---
pt requested her prilosec. dr medina notified. orders rec'd.
--- NOTE | 2022-04-29 22:00 | NUR ---
watching tv. no distress.
--- NOTE | 2022-04-29 23:10 | NUR ---
lab here. blood drawn.
[2022-04-30] VITALS (31 sets, daily range): BP systolic 131–182; BP diastolic 74–126
--- NOTE | 2022-04-30 03:15 | NUR ---
dr medina called this headline writer. updated on pts condition. orders rec'd. lab notified & chris blood.
--- NOTE | 2022-04-30 03:30 | NUR ---
lab here. blood drawn.
[2022-04-30 03:34] LABS: IMMATURE GRANULOCYTES 0.5 % (0.0-5.0); MEAN CELL VOLUME 111.8 fL CALC (80.0-100.0); MEAN CORPUSCULAR HGB 38.2 pG CALC (26.0-32.0); MEAN CORPUSCULAR HGB CONC 34.2 g/dL CAL (32.0-36.0); NEUT# 7.73 thou/uL (2.00-7.15); RED BLOOD COUNT 3.14 mill/uL (4.20-5.60); RED CELL DISTRI WIDTH 12.5 % (11.5-15.5)
[2022-04-30 03:41] LABS: HEMATOCRIT 35.1 % (37.0-47.0)
[2022-04-30 03:42] LABS: ALKALINE PHOSPHATASE 262 u/l (38-126); ANION GAP 10 (6-22 (CALC)); BILIRUBIN, TOTAL 1.2 mg/dL (0.0-1.4); BUN < 2 mg/dL (7-17); CARBON DIOXIDE 30 mmol/l (22-30); CHLORIDE 102 mmol/l (95-108); CREATININE 0.5 mg/dL (0.5-1.0); GFR FOR AFR.AMER. > 60 ML/MIN (>=60 (CALC)); GFR OTHER RACES > 60 ML/MIN (>=60 (CALC)); MAGNESIUM 1.9 mg/dL (1.6-2.3); POTASSIUM 3.2 mmol/l (3.5-5.1); SGOT/AST 205 u/l (14-36); SODIUM 139 mmol/l (137-146)
[2022-04-30 03:50] LABS: ALBUMIN 2.4 g/dL (3.2-5.0); TOTAL PROTEIN 4.9 g/dL (6.3-8.2)
--- NOTE | 2022-04-30 05:00 | NUR ---
amb self to br. no further stools.
--- NOTE | 2022-04-30 07:50 | NUR ---
pt awake in bed; no apparent distress noted; assessment completed at this time; pt alert and oriented; admits to genalized pain rating 6/10, admits to pain relief after receiving pain meds this morning; no n/v noted; resp even and unlabored; lungs clear/ diminished bases and right middle post lobe; skin color wnl; ra; money room supervisor dry cough noted; hr reg; wk pedal pulses; wk left radial pulses; edema noted to left hand/wrist; st 120s on monitor; abd soft with bs present; no bm noted per technical document writer; hat placed in bsc; pt aware stool sample is needed; pt voiding without complication; clear yellow urine, 1300cc emptied from bsc; #22 patent to rfa with ivf infusing without complication; #20 to rac saline locked; no redness or edema noted at site; plan of care/ am meds explained; call light within reach; will continue to monitor
--- NOTE | 2022-04-30 08:12 | NUR ---
pt awake sitting at the side of the bed eating breakfast; offers no complaints; appears anxious; st on monitor; iv intact and patent; no redness or edema noted at site; call light within reach; will continue to monitor
--- NOTE | 2022-04-30 09:35 | NUR ---
Dr Infante present at bedside to assess pt and discuss plan of care
[2022-04-30] MEDS ORDERED: TOPROL XL50 MG PO (09:49)
--- NOTE | 2022-04-30 10:07 | NUR ---
Dr Nieves present at bedside to assess pt and discuss plan of care
[2022-04-30] MEDS ORDERED: POTASSIUM CHLO20 ME2 PO (10:41)
[2022-04-30] MEDS ORDERED: ALBUTEROL SUL0.083 % IN (10:42)
[2022-04-30] MEDS ORDERED: PROAIR HFA108 MCG/AC IN (10:43)
[2022-04-30] MEDS ORDERED: OMEPRAZOLE DR40 MG PO (10:47)
--- NOTE | 2022-04-30 12:05 | NUR ---
awake in bed eating lunch; no apparent distress noted; st on monitor; iv intact and patent; no redness or edema noted at site; pt deny needs; call light wihin reach; will continue to monitor
--- NOTE | 2022-04-30 12:12 | NUR ---
screenplay writer noted order for CTA; radiology notified patient was provided with meal; meal since was removed with pt eating approx 40%; radiology spoke with radiologist whom informed this screenplay writer to speak with Dr marsh; Dr Marsh informed pt was provided meal (screenplay writer missed CTA order); order received to continue with CTA as planned and admin oral contrast
--- NOTE | 2022-04-30 12:29 | NUR ---
radiology informed contrast has been admin per Dr Daigle request to cont with plan of care; this health science writer was informed to hold contrast for 4 hours; radiology informed 1 st dose had admin; will continue to monitor and update pt
--- NOTE | 2022-04-30 13:41 | NUR ---
Dr Infante called per medical writer in regards to elevated BP and tachycardia; orders received
--- NOTE | 2022-04-30 14:07 | NUR ---
awake in bed; offers no complaints; iv intact and patent; st on monitor; call light within reach; will continue to monitor
--- NOTE | 2022-04-30 16:02 | NUR ---
awake in bed; offers no complaints; bp remain elevated; MD to be notified; gastrographin tolerated; st on monitor; pt offers no complaints; iv intact and patent; call light within reach; will continue to monitor
--- NOTE | 2022-04-30 16:37 | NUR ---
manual bp 162/90; st 113 on monitor
--- NOTE | 2022-04-30 16:41 | NUR ---
Dr Infante called per comic book writer in regards to elevated BP; MD also informed pt noted with upper extremity hand tremors; pt appears anxious; order received and on chart
--- NOTE | 2022-04-30 17:31 | NUR ---
pt admits to taking prednisone in the past for copd; pt admits to prednisone causing elevated blood pressure, headache and jitters; pt noted with elevated bp approc 2 hours after prednisone was admin; Dr Infante informed of this information
--- NOTE | 2022-04-30 18:21 | NUR ---
orders received to hold prednisone
--- NOTE | 2022-04-30 18:22 | NUR ---
awake in room; offers no complaints at this time; iv intact; NPO after CT Scan; call light within reach
--- NOTE | 2022-04-30 18:30 | NUR ---
pt transported to CT Scan via wc accompanied by this service writer in stable condition;
--- NOTE | 2022-04-30 19:35 | NUR ---
returned from ct per wc accompanied by supervisor contact and service clerks. amb self to br then to bed. eladio well. c/o slight sob. o2 reapplied. nurse monitoring shows sinus tach. ivf resumed. supper meal provided. fall precautions cont.
--- NOTE | 2022-04-30 22:00 | NUR ---
watching tv. no distress. ivf infusing well.
[2022-05-01] VITALS (26 sets, daily range): BP systolic 114–195; BP diastolic 71–108
--- NOTE | 2022-05-01 00:01 | NUR ---
awakens easily. nad. compliance monitor shows st pacs pvcs.
--- NOTE | 2022-05-01 02:00 | NUR ---
resting quietly. resps even & unlabored. no distress.
--- NOTE | 2022-05-01 04:00 | NUR ---
lab here. blood drawn.
[2022-05-01 05:06] LABS: HEMATOCRIT 33.9 % (37.0-47.0); HEMOGLOBIN 11.6 g/dl (12.0-16.0); IMMATURE GRANULOCYTES 0.9 % (0.0-5.0); MEAN CELL VOLUME 113.8 fL CALC (80.0-100.0); MEAN CORPUSCULAR HGB 38.9 pG CALC (26.0-32.0); MEAN CORPUSCULAR HGB CONC 34.2 g/dL CAL (32.0-36.0); NEUT# 5.53 thou/uL (2.00-7.15); RED BLOOD COUNT 2.98 mill/uL (4.20-5.60); RED CELL DISTRI WIDTH 12.4 % (11.5-15.5)
[2022-05-01 05:23] LABS: ANION GAP 11 (6-22 (CALC)); BUN < 2 mg/dL (7-17); CARBON DIOXIDE 28 mmol/l (22-30); CHLORIDE 105 mmol/l (95-108); CREATININE 0.4 mg/dL (0.5-1.0); GFR FOR AFR.AMER. > 60 ML/MIN (>=60 (CALC)); GFR OTHER RACES > 60 ML/MIN (>=60 (CALC)); MAGNESIUM 1.8 mg/dL (1.6-2.3); POTASSIUM 3.3 mmol/l (3.5-5.1); SODIUM 141 mmol/l (137-146)
--- NOTE | 2022-05-01 05:40 | NUR ---
up to bathroom for am care.
--- NOTE | 2022-05-01 07:40 | NUR ---
pt awake in bed; no apparent distress noted; pt offers no complaints; assessment completed at this time; pt alert and oriented; denies pain at current; no n/v noted; resp even and unlabored; lungs clear/ diminished bases; skin color wnl; o2 per nc at 2L; dry cutter out cough noted; hr reg; wk pedal pulses; no pedal edema noted; edema noted to left hand/wrist (improved); pt noted with more rom to left hand/fingers; st on monitor; abd soft with bs present; no bm noted per newspaper writer; pt admits to voiding without complication; bsc; no urine to inspect at this time; #22 patent to rfa with ivf infusing without complication; #20 saline locked to rac; no redness or edema noted at sites; plan of care/ am meds explained; call light within reach; will continue to monitor
--- NOTE | 2022-05-01 08:00 | NUR ---
awake in bed eating breakfast; st pac/pvc on monitor; offers no complaints; iv intact; call light within reach; will continue to monitor
--- NOTE | 2022-05-01 08:30 | NUR ---
Dr Leary present at bedside to assess pt and discuss plan of care; pt very anxious with discussion of care; hr noted from 120-160s; occ runs of Afib noted; MD remains at bedside to observe; relaxation techniques explained; will continue to monitor
--- NOTE | 2022-05-01 09:10 | NUR ---
am meds explained and admin; pt very very anxious and tearful; will continue to monitor
--- NOTE | 2022-05-01 10:02 | NUR ---
awake in bed; spouse present at bedside; st pac/pvc on monitor; iv intact and patent; call light within reach; will continue to monitor
--- NOTE | 2022-05-01 10:16 | NUR ---
Dr Nieves present at bedside to assess pt and discuss plan of care
--- NOTE | 2022-05-01 12:02 | NUR ---
pt awake in bed eating lunch; no apparent distress noted; pt admits to feeling depressed; offers no other concerns at this time; st esther pac on monitor; iv intact and patent; call light within reach; will continue to monitor
--- NOTE | 2022-05-01 14:10 | NUR ---
awake in bed; offers complaints of rectum irritation from stooling; barrier cream provided; will continue to monitor
--- NOTE | 2022-05-01 14:18 | NUR ---
lab [facility] called; labs will be ran off am blood work per Cheli; remote mortgage underwriter will admin Aldactone
--- NOTE | 2022-05-01 16:05 | NUR ---
awake in bed; offers no complaints; iv intact and patent; sr on monitor; o2 per nc; call light within reach; will continue to monitor
--- NOTE | 2022-05-01 18:15 | NUR ---
awake eating dinner; offers no complaints; iv intact; sr on monitor; call light within reach
--- NOTE | 2022-05-01 19:15 | NUR ---
awake. talking on cell phone. denies distress/diarrhea. o2 cont per nc. school bus monitor shows sinus rhythm pacs pvcs. ivf infusing well. po fluids taken well. voids w/o diff. fall precautions cont.
--- NOTE | 2022-05-01 21:30 | NUR ---
lab here. blood drawn.
[2022-05-02] VITALS (16 sets, daily range): BP systolic 141–184; BP diastolic 75–111
--- NOTE | 2022-05-02 00:01 | NUR ---
awakens easily. no distress. ivf infusing well.
--- NOTE | 2022-05-02 02:00 | NUR ---
resting quietly. no distress. ivf infusing well.
--- NOTE | 2022-05-02 04:00 | NUR ---
eyes closed. no distress. wire temperer shows sinus rhythm pacs pvcs.
--- NOTE | 2022-05-02 05:13 | NUR ---
lab here. blood drawn.
[2022-05-02 05:32] LABS: HEMATOCRIT 33.9 % (37.0-47.0); HEMOGLOBIN 11.7 g/dl (12.0-16.0); MEAN CELL VOLUME 111.9 fL CALC (80.0-100.0); MEAN CORPUSCULAR HGB 38.6 pG CALC (26.0-32.0); MEAN CORPUSCULAR HGB CONC 34.5 g/dL CAL (32.0-36.0); NEUT# 5.68 thou/uL (2.00-7.15); RED BLOOD COUNT 3.03 mill/uL (4.20-5.60); RED CELL DISTRI WIDTH 11.9 % (11.5-15.5)
[2022-05-02 05:44] LABS: ANION GAP 6 (6-22 (CALC)); BUN < 2 mg/dL (7-17); CARBON DIOXIDE 31 mmol/l (22-30); CHLORIDE 106 mmol/l (95-108); CREATININE 0.3 mg/dL (0.5-1.0); GFR FOR AFR.AMER. > 60 ML/MIN (>=60 (CALC)); GFR OTHER RACES > 60 ML/MIN (>=60 (CALC)); MAGNESIUM 1.5 mg/dL (1.6-2.3); POTASSIUM 3.6 mmol/l (3.5-5.1); SODIUM 140 mmol/l (137-146)
--- NOTE | 2022-05-02 08:09 | NUR ---
PT AWAKE NOW, SEEN EATING HER BREAKFAST. PT IS ALERT AND ORIENTED, OFFERS NO COMPLAINTS.
--- NOTE | 2022-05-02 09:04 | NUR ---
PT RECEIVED RESP TX THIS MORNING AFTER WALKING TO BR, STATES THAT IS HER ROUTINE. LUNGS WERE SLIGHTLY WHEEZY, NOW CLEAR BUT DIMINISHED. DR WILLOUGHBY HAS SEEN PT THIS MORNING, TALKED ABOUT POSSIBLE DISCHARGE TO HOME IF HER HR RESPONDS WELL TO TOPROL XL.
[2022-05-02] MEDS ORDERED: TOPROL XL50 MG PO (11:01)
[2022-05-02] MEDS ORDERED: ALDACTONE25 MG PO (11:02)
[2022-05-02] MEDS ORDERED: SERTRALINE25 MG PO (11:02)
[2022-05-02] MEDS ORDERED: METRONIDAZOLE500 MG PO (11:03)
[2022-05-02] MEDS ORDERED: CIPROFLOXACN500 MG PO (11:03)
--- NOTE | 2022-05-02 11:34 | NUR ---
PT HAS BEEN DISCHARGED TO HOME. PT AMBULATED AROUND NURSING STATION, SEEN TO HAVE ACCELERATED HR WITH ACTIVITY WHICH RETURNED TO NORMAL WITHIN 10 MINUTES. NO SHORTNESS OF BREATH OR CHEST PAIN. PT EATING LUNCH, WILL CALL FOR HER RIDE WHEN FINISHED.
--- NOTE | 2022-05-02 12:16 | NUR ---
PT VERBALIZED UNDERSTANDING OF DC INSTRUCTIONS, TAKEN BY WHEELCHAIR TO VEHICLE. PT LEAVES [facility] IN STABLE CONDITION. MANAGER SOFTWARE.
== END 2022-05-02 12:05 | disposition home or self-care (01) | DRG 641 ==
LOC: ED 04:02 → ED-I 08:49 → ICU 13:00
PROVIDERS: Family Medicine; Internal Medicine; ADMIT Internal Medicine; ATTEND Internal Medicine
DX: E87.2 Acidosis (principal); R00.0 Tachycardia, unspecified; E87.6 Hypokalemia; E83.51 Hypocalcemia; E83.42 Hypomagnesemia; E26.09 Other primary hyperaldosteronism; E27.9 Disorder of adrenal gland, unspecified; R11.2 Nausea with vomiting, unspecified; F10.20 Alcohol dependence, uncomplicated; K52.9 Noninfective gastroenteritis and colitis, unspecified; J44.9 Chronic obstructive pulmonary disease, unspecified; K70.10 Alcoholic hepatitis without ascites; I67.1 Cerebral aneurysm, nonruptured; K21.9 Gastro-esophageal reflux disease without esophagitis; M48.00 Spinal stenosis, site unspecified; F17.200 Nicotine dependence, unspecified, uncomplicated; Z20.822 Contact with and (suspected) exposure to COVID-19
CPT/HCPCS: J1650; J3475; Q9967

== ENCOUNTER 2022-05-08 20:00 | Emergency (ER) | payer MEDICARE ==
[~2022-05-08] VITALS: Ht 172.7 cm; Wt 58.0 kg
[2022-05-08] VITALS (13 sets, daily range): BP systolic 153–194; BP diastolic 82–115
[~2022-05-08 20:00] MED LIST changes: +ALDACTONE25 MG PO; +METRONIDAZOLE500 MG PO; +OMEPRAZOLE DR40 MG PO; +POTASSIUM CHLO20 ME2 PO; +PROAIR HFA108 MCG/AC IN; +SERTRALINE25 MG PO; +TOPROL XL50 MG PO
[2022-05-08 21:36] LABS: HEMATOCRIT 36.9 % (37.0-47.0); HEMOGLOBIN 12.8 g/dl (12.0-16.0); IMMATURE GRANULOCYTES 0.5 % (0.0-5.0); MEAN CELL VOLUME 109.2 fL CALC (80.0-100.0); MEAN CORPUSCULAR HGB 37.9 pG CALC (26.0-32.0); MEAN CORPUSCULAR HGB CONC 34.7 g/dL CAL (32.0-36.0); NEUT# 9.52 thou/uL (2.00-7.15); RED BLOOD COUNT 3.38 mill/uL (4.20-5.60); RED CELL DISTRI WIDTH 11.8 % (11.5-15.5)
[2022-05-08 21:40] LABS: URINE BILIRUBIN - DIPSTICK NEGATIVE (NEGATIVE); URINE BLOOD DIPSTICK NEGATIVE (NEGATIVE); URINE COLOR YELLOW; URINE GLUCOSE - DIPSTICK 100 mg/dL (NEGATIVE); URINE KETONE NEGATIVE (NEGATIVE); URINE LEUK ESTERASE NEGATIVE (NEGATIVE); URINE NITRITE - DIPSTICK NEGATIVE (Negative); URINE PH 7.5 (4.5-8.0); URINE PROTEIN - DIPSTICK NEGATIVE (NEG-TRACE); URINE UROBILINOGEN - DIPSTICK 0.2 E.U./dL (0.2)
[2022-05-08 21:48] LABS: ALKALINE PHOSPHATASE 211 u/l (38-126); AMYLASE 68 u/l (30-110); ANION GAP 8 (6-22 (CALC)); BUN 4 mg/dL (7-17); BUN/CREATININE RATIO 9 (12-20 (CALC)); CARBON DIOXIDE 36 mmol/l (22-30); CHLORIDE 95 mmol/l (95-108); CREATININE 0.4 mg/dL (0.5-1.0); GFR FOR AFR.AMER. > 60 ML/MIN (>=60 (CALC)); GFR OTHER RACES > 60 ML/MIN (>=60 (CALC)); LIPASE 41 u/l (23-300); POTASSIUM 3.3 mmol/l (3.5-5.1); SODIUM 135 mmol/l (137-146)
[2022-05-08 21:59] LABS: ALBUMIN 3.7 g/dL (3.2-5.0); BILIRUBIN, TOTAL 0.4 mg/dL (0.0-1.4); MAGNESIUM 1.1 mg/dL (1.6-2.3); MYOGLOBIN 19 ng/mL (0 - 62); SGOT/AST 47 u/l (14-36); TOTAL PROTEIN 7.5 g/dL (6.3-8.2)
== END 2022-05-08 23:53 | disposition left against medical advice (07) ==
LOC: ED 20:00 → ED-I 22:56 → ED 23:53
PROVIDERS: Emergency Medicine
DX: R07.9 Chest pain, unspecified (principal); I10 Essential (primary) hypertension; K21.9 Gastro-esophageal reflux disease without esophagitis; J44.9 Chronic obstructive pulmonary disease, unspecified; K44.9 Diaphragmatic hernia without obstruction or gangrene; F17.200 Nicotine dependence, unspecified, uncomplicated; Z91.19 Patient's noncompliance with other medical treatment and regimen

== ENCOUNTER 2022-05-09 03:51 | Inpatient (IN) | payer MEDICARE ==
[~2022-05-09] VITALS: Ht 172.7 cm; Wt 58.0 kg
[2022-05-09] VITALS (21 sets, daily range): BP systolic 144–207; BP diastolic 60–104
[2022-05-09 04:30] LABS: HEMATOCRIT 36.8 % (37.0-47.0); HEMOGLOBIN 13.1 g/dl (12.0-16.0); IMMATURE GRANULOCYTES 0.7 % (0.0-5.0); MEAN CELL VOLUME 105.4 fL CALC (80.0-100.0); MEAN CORPUSCULAR HGB 37.5 pG CALC (26.0-32.0); MEAN CORPUSCULAR HGB CONC 35.6 g/dL CAL (32.0-36.0); NEUT# 10.29 thou/uL (2.00-7.15); RED BLOOD COUNT 3.49 mill/uL (4.20-5.60); RED CELL DISTRI WIDTH 11.5 % (11.5-15.5)
[2022-05-09 04:44] LABS: ALBUMIN 3.8 g/dL (3.2-5.0); ALKALINE PHOSPHATASE 196 u/l (38-126); ANION GAP 10 (6-22 (CALC)); BILIRUBIN, TOTAL 0.4 mg/dL (0.0-1.4); BUN 3 mg/dL (7-17); BUN/CREATININE RATIO 9 (12-20 (CALC)); CARBON DIOXIDE 34 mmol/l (22-30); CHLORIDE 92 mmol/l (95-108); CREATININE 0.3 mg/dL (0.5-1.0); GFR FOR AFR.AMER. > 60 ML/MIN (>=60 (CALC)); GFR OTHER RACES > 60 ML/MIN (>=60 (CALC)); POTASSIUM 3.1 mmol/l (3.5-5.1); SGOT/AST 43 u/l (14-36); SODIUM 132 mmol/l (137-146); TOTAL PROTEIN 7.6 g/dL (6.3-8.2)
[2022-05-09 04:55] LABS: MYOGLOBIN 22 ng/mL (0 - 62)
[2022-05-09 05:09] LABS: AMYLASE 135 u/l (30-110); LIPASE 687 u/l (23-300)
[2022-05-10] VITALS (10 sets, daily range): BP systolic 151–191; BP diastolic 72–100
[2022-05-10 05:19] LABS: HEMATOCRIT 36.1 % (37.0-47.0); HEMOGLOBIN 13.9 g/dl (12.0-16.0); IMMATURE GRANULOCYTES 1.3 % (0.0-5.0); MEAN CELL VOLUME 99.7 fL CALC (80.0-100.0); MEAN CORPUSCULAR HGB 38.4 pG CALC (26.0-32.0); MEAN CORPUSCULAR HGB CONC 38.5 g/dL CAL (32.0-36.0); NEUT# 21.41 thou/uL (2.00-7.15); RED BLOOD COUNT 3.62 mill/uL (4.20-5.60); RED CELL DISTRI WIDTH 11.2 % (11.5-15.5)
[2022-05-10 05:49] LABS: ALBUMIN 3.3 g/dL (3.2-5.0); ALKALINE PHOSPHATASE 174 u/l (38-126); AMYLASE 902 u/l (30-110); ANION GAP 12 (6-22 (CALC)); BUN 4 mg/dL (7-17); BUN/CREATININE RATIO 12 (12-20 (CALC)); CARBON DIOXIDE 29 mmol/l (22-30); CHLORIDE 89 mmol/l (95-108); CREATININE 0.3 mg/dL (0.5-1.0); GFR FOR AFR.AMER. > 60 ML/MIN (>=60 (CALC)); GFR OTHER RACES > 60 ML/MIN (>=60 (CALC)); SGOT/AST 45 u/l (14-36); SODIUM 127 mmol/l (137-146); TOTAL PROTEIN 6.3 g/dL (6.3-8.2)
[2022-05-10 05:57] LABS: BILIRUBIN, TOTAL 0.6 mg/dL (0.0-1.4)
[2022-05-10 23:25] LABS: HEMATOCRIT 36.2 % (37.0-47.0); HEMOGLOBIN 13.2 g/dl (12.0-16.0); IMMATURE GRANULOCYTES 0.3 % (0.0-5.0); MEAN CELL VOLUME 102.5 fL CALC (80.0-100.0); MEAN CORPUSCULAR HGB 37.4 pG CALC (26.0-32.0); MEAN CORPUSCULAR HGB CONC 36.5 g/dL CAL (32.0-36.0); NEUT# 19.45 thou/uL (2.00-7.15); RED BLOOD COUNT 3.53 mill/uL (4.20-5.60); RED CELL DISTRI WIDTH 11.5 % (11.5-15.5)
[2022-05-10 23:42] LABS: ALBUMIN 3.2 g/dL (3.2-5.0); ALKALINE PHOSPHATASE 161 u/l (38-126); ANION GAP 8 (6-22 (CALC)); BILIRUBIN, TOTAL 0.6 mg/dL (0.0-1.4); BUN 6 mg/dL (7-17); BUN/CREATININE RATIO 16 (12-20 (CALC)); CARBON DIOXIDE 32 mmol/l (22-30); CHLORIDE 94 mmol/l (95-108); CREATININE 0.4 mg/dL (0.5-1.0); GFR FOR AFR.AMER. > 60 ML/MIN (>=60 (CALC)); GFR OTHER RACES > 60 ML/MIN (>=60 (CALC)); POTASSIUM 2.9 mmol/l (3.5-5.1); SGOT/AST 51 u/l (14-36); SODIUM 132 mmol/l (137-146); TOTAL PROTEIN 6.5 g/dL (6.3-8.2)
[2022-05-11] VITALS (20 sets, daily range): BP systolic 115–183; BP diastolic 53–100
[2022-05-11 05:41] LABS: HEMATOCRIT 35.4 % (37.0-47.0); HEMOGLOBIN 12.9 g/dl (12.0-16.0); IMMATURE GRANULOCYTES 0.4 % (0.0-5.0); MEAN CELL VOLUME 104.1 fL CALC (80.0-100.0); MEAN CORPUSCULAR HGB 37.9 pG CALC (26.0-32.0); MEAN CORPUSCULAR HGB CONC 36.4 g/dL CAL (32.0-36.0); NEUT# 17.98 thou/uL (2.00-7.15); RED BLOOD COUNT 3.4 mill/uL (4.20-5.60); RED CELL DISTRI WIDTH 11.5 % (11.5-15.5)
[2022-05-11 06:47] LABS: ALKALINE PHOSPHATASE 156 u/l (38-126); AMYLASE 329 u/l (30-110); ANION GAP 10 (6-22 (CALC)); BILIRUBIN, TOTAL 0.5 mg/dL (0.0-1.4); BUN 6 mg/dL (7-17); BUN/CREATININE RATIO 13 (12-20 (CALC)); CARBON DIOXIDE 31 mmol/l (22-30); CHLORIDE 97 mmol/l (95-108); CREATININE 0.5 mg/dL (0.5-1.0); GFR FOR AFR.AMER. > 60 ML/MIN (>=60 (CALC)); GFR OTHER RACES > 60 ML/MIN (>=60 (CALC)); LIPASE 1115 u/l (23-300); POTASSIUM 2.8 mmol/l (3.5-5.1); SGOT/AST 56 u/l (14-36); SODIUM 135 mmol/l (137-146); TOTAL PROTEIN 6.1 g/dL (6.3-8.2)
[2022-05-12] VITALS (25 sets, daily range): BP systolic 131–178; BP diastolic 58–97
[2022-05-12 05:40] LABS: ALKALINE PHOSPHATASE 163 u/l (38-126); AMYLASE 277 u/l (30-110); ANION GAP 8 (6-22 (CALC)); BILIRUBIN, TOTAL 0.3 mg/dL (0.0-1.4); BUN 3 mg/dL (7-17); BUN/CREATININE RATIO 6 (12-20 (CALC)); CARBON DIOXIDE 30 mmol/l (22-30); CHLORIDE 100 mmol/l (95-108); CREATININE 0.4 mg/dL (0.5-1.0); GFR FOR AFR.AMER. > 60 ML/MIN (>=60 (CALC)); GFR OTHER RACES > 60 ML/MIN (>=60 (CALC)); LIPASE 1158 u/l (23-300); SGOT/AST 65 u/l (14-36); SODIUM 135 mmol/l (137-146); TOTAL PROTEIN 6.1 g/dL (6.3-8.2)
[2022-05-12 05:42] LABS: MEAN CELL VOLUME 107.7 fL CALC (80.0-100.0); MEAN CORPUSCULAR HGB CONC 34.4 g/dL CAL (32.0-36.0); RED BLOOD COUNT 2.97 mill/uL (4.20-5.60); RED CELL DISTRI WIDTH 11.7 % (11.5-15.5)
[2022-05-12 05:44] LABS: MAGNESIUM 1.7 mg/dL (1.6-2.3)
[2022-05-13] VITALS (15 sets, daily range): BP systolic 125–176; BP diastolic 53–109
[2022-05-13 04:38] LABS: HEMATOCRIT 29.4 % (37.0-47.0); HEMOGLOBIN 10.3 g/dl (12.0-16.0); MEAN CELL VOLUME 106.5 fL CALC (80.0-100.0); MEAN CORPUSCULAR HGB 37.3 pG CALC (26.0-32.0); RED BLOOD COUNT 2.76 mill/uL (4.20-5.60); RED CELL DISTRI WIDTH 11.6 % (11.5-15.5)
[2022-05-13 04:58] LABS: ALBUMIN 2.7 g/dL (3.2-5.0); ALKALINE PHOSPHATASE 156 u/l (38-126); ANION GAP 8 (6-22 (CALC)); BILIRUBIN, TOTAL 0.2 mg/dL (0.0-1.4); BUN < 2 mg/dL (7-17); CARBON DIOXIDE 30 mmol/l (22-30); CHLORIDE 100 mmol/l (95-108); CREATININE 0.3 mg/dL (0.5-1.0); GFR FOR AFR.AMER. > 60 ML/MIN (>=60 (CALC)); GFR OTHER RACES > 60 ML/MIN (>=60 (CALC)); LIPASE 620 u/l (23-300); MAGNESIUM 1.5 mg/dL (1.6-2.3); POTASSIUM 2.7 mmol/l (3.5-5.1); SGOT/AST 51 u/l (14-36); SODIUM 136 mmol/l (137-146); TOTAL PROTEIN 5.5 g/dL (6.3-8.2)
[2022-05-14 00:41] VITALS: BP 156/68
[2022-05-14 03:56] VITALS: BP 160/66
[2022-05-14 06:19] LABS: HEMATOCRIT 29.9 % (37.0-47.0); HEMOGLOBIN 10.3 g/dl (12.0-16.0); MEAN CELL VOLUME 107.6 fL CALC (80.0-100.0); MEAN CORPUSCULAR HGB 37.1 pG CALC (26.0-32.0); MEAN CORPUSCULAR HGB CONC 34.4 g/dL CAL (32.0-36.0); RED BLOOD COUNT 2.78 mill/uL (4.20-5.60); RED CELL DISTRI WIDTH 11.7 % (11.5-15.5)
[2022-05-14 06:51] LABS: ALBUMIN 2.6 g/dL (3.2-5.0); ALKALINE PHOSPHATASE 174 u/l (38-126); ANION GAP 8 (6-22 (CALC)); BILIRUBIN, TOTAL 0.2 mg/dL (0.0-1.4); BUN < 2 mg/dL (7-17); CARBON DIOXIDE 35 mmol/l (22-30); CHLORIDE 96 mmol/l (95-108); CREATININE 0.4 mg/dL (0.5-1.0); GFR FOR AFR.AMER. > 60 ML/MIN (>=60 (CALC)); GFR OTHER RACES > 60 ML/MIN (>=60 (CALC)); LIPASE 657 u/l (23-300); MAGNESIUM 2.2 mg/dL (1.6-2.3); POTASSIUM 3.1 mmol/l (3.5-5.1); SGOT/AST 36 u/l (14-36); SODIUM 136 mmol/l (137-146); TOTAL PROTEIN 5.2 g/dL (6.3-8.2)
[2022-05-14 08:13] VITALS: BP 157/67
[2022-05-14 10:15] VITALS: BP 158/78
[2022-05-14] MEDS ORDERED: LEVETIRACETAM500 MG PO (12:24)
[2022-05-14] MEDS ORDERED: AMOX/K CLAV875 M1 PO (12:26)
[2022-05-14] MEDS ORDERED: MEDDOSEPAK PO (12:38)
== END 2022-05-14 13:00 | disposition home or self-care (01) | DRG 871 ==
LOC: ED 03:51 → MS2 06:43 → ICU 05-10 14:42 → MS2 05-10 14:42 → ICU 05-10 22:55 → MS2 05-13 11:33
PROVIDERS: Emergency Medicine; ADMIT Internal Medicine; ATTEND Internal Medicine
PROC: 0T9B70Z Drainage of Bladder with Drainage Device, Via Natural or Artificial Opening (ICD-10-PCS; principal; 2022-05-10)
DX: A41.9 Sepsis, unspecified organism (principal); K85.90 Acute pancreatitis without necrosis or infection, unspecified; E87.2 Acidosis; J96.10 Chronic respiratory failure, unspecified whether with hypoxia or hypercapnia; E87.6 Hypokalemia; E83.42 Hypomagnesemia; R56.9 Unspecified convulsions; I10 Essential (primary) hypertension; J40 Bronchitis, not specified as acute or chronic; J44.9 Chronic obstructive pulmonary disease, unspecified; I67.1 Cerebral aneurysm, nonruptured; E27.9 Disorder of adrenal gland, unspecified; R00.0 Tachycardia, unspecified; D32.0 Benign neoplasm of cerebral meninges; M54.9 Dorsalgia, unspecified; G89.29 Other chronic pain; Z87.891 Personal history of nicotine dependence; Z20.822 Contact with and (suspected) exposure to COVID-19; Z99.81 Dependence on supplemental oxygen
CPT/HCPCS: J1650; J1953; J2060; J3475; Q3014; Q9967; S0164

== ENCOUNTER 2022-06-19 22:07 | Inpatient (IN) | payer MEDICARE ==
[~2022-06-19] VITALS: Ht 172.7 cm; Wt 58.0 kg
[~2022-06-19 22:07] MED LIST changes: +LEVETIRACETAM500 MG PO
[2022-06-19 22:18] VITALS: BP 136/105
[2022-06-19 22:30] VITALS: BP 124/84
[2022-06-19 22:45] VITALS: BP 130/74
[2022-06-19 23:13] LABS: IMMATURE GRANULOCYTES 0.2 % (0.0-5.0); MEAN CELL VOLUME 103.9 fL CALC (80.0-100.0); MEAN CORPUSCULAR HGB 34.4 pG CALC (26.0-32.0); MEAN CORPUSCULAR HGB CONC 33.1 g/dL CAL (32.0-36.0); NEUT# 6.18 thou/uL (2.00-7.15); RED BLOOD COUNT 3.87 mill/uL (4.20-5.60); RED CELL DISTRI WIDTH 12.3 % (11.5-15.5)
[2022-06-19 23:15] VITALS: BP 130/62
[2022-06-19 23:17] LABS: HEMATOCRIT 40.2 % (37.0-47.0); HEMOGLOBIN 13.3 g/dl (12.0-16.0)
[2022-06-19 23:29] LABS: ALKALINE PHOSPHATASE 194 u/l (38-126); CHLORIDE 87 mmol/l (95-108); CREATININE 0.5 mg/dL (0.5-1.0); GFR FOR AFR.AMER. > 60 ML/MIN (>=60 (CALC)); GFR OTHER RACES > 60 ML/MIN (>=60 (CALC)); SGOT/AST 46 u/l (14-36); SODIUM 136 mmol/l (137-146)
[2022-06-19 23:30] VITALS: BP 123/75
[2022-06-19 23:36] LABS: CARBON DIOXIDE 39 mmol/l (22-30); TOTAL PROTEIN 6.2 g/dL (6.3-8.2)
[2022-06-19 23:38] LABS: ANION GAP 12 (6-22 (CALC))
[2022-06-19 23:39] LABS: BILIRUBIN, TOTAL 0.1 mg/dL (0.0-1.4); BUN 2 mg/dL (7-17); BUN/CREATININE RATIO 4 (12-20 (CALC))
[2022-06-19 23:41] LABS: POTASSIUM 2.4 mmol/l (3.5-5.1)
[2022-06-19 23:44] LABS: MYOGLOBIN 72 ng/mL (0 - 62)
[2022-06-19 23:46] VITALS: BP 117/69
[2022-06-20] VITALS (12 sets, daily range): BP systolic 110–169; BP diastolic 48–80
[2022-06-20 11:21] LABS: ALBUMIN 2.5 g/dL (3.2-5.0); ALKALINE PHOSPHATASE 201 u/l (38-126); BUN 2 mg/dL (7-17); BUN/CREATININE RATIO 5 (12-20 (CALC)); CHLORIDE 95 mmol/l (95-108); CREATININE 0.4 mg/dL (0.5-1.0); GFR FOR AFR.AMER. > 60 ML/MIN (>=60 (CALC)); GFR OTHER RACES > 60 ML/MIN (>=60 (CALC)); LIPASE 74 u/l (23-300); SGOT/AST 40 u/l (14-36); SODIUM 140 mmol/l (137-146); TOTAL PROTEIN 5.3 g/dL (6.3-8.2)
[2022-06-20 11:25] LABS: ANION GAP 9 (6-22 (CALC)); BILIRUBIN, TOTAL 0.3 mg/dL (0.0-1.4); CARBON DIOXIDE 40 mmol/l (22-30); MAGNESIUM 2.1 mg/dL (1.6-2.3); POTASSIUM 3.6 mmol/l (3.5-5.1)
[2022-06-20] MEDS ORDERED: OS-CAL 500500 M1 PO (11:25)
[2022-06-20 14:28] LABS: URINE BILIRUBIN - DIPSTICK NEGATIVE (NEGATIVE); URINE BLOOD DIPSTICK NEGATIVE (NEGATIVE); URINE COLOR YELLOW; URINE GLUCOSE - DIPSTICK NEGATIVE (NEGATIVE); URINE KETONE NEGATIVE (NEGATIVE); URINE LEUK ESTERASE SMALL (NEGATIVE); URINE NITRITE - DIPSTICK NEGATIVE (Negative); URINE PH 7.5 (4.5-8.0); URINE PROTEIN - DIPSTICK NEGATIVE (NEG-TRACE)
[2022-06-20 14:29] LABS: URINE BACTERIA FEW hpf; URINE EPITHELIAL CELLS FEW EPI/hpf (0-FEW)
== END 2022-06-20 17:00 | disposition home or self-care (01) | DRG 641 ==
LOC: ED 22:07 → ED-I 23:45 → ED 06-20 00:57 → ICU 06-20 00:58
PROVIDERS: Emergency Medicine; ADMIT Internal Medicine; ATTEND Internal Medicine
DX: E83.51 Hypocalcemia (principal); E83.42 Hypomagnesemia; E87.6 Hypokalemia; E27.9 Disorder of adrenal gland, unspecified; J44.9 Chronic obstructive pulmonary disease, unspecified; G40.909 Epilepsy, unspecified, not intractable, without status epilepticus; Z86.79 Personal history of other diseases of the circulatory system; Z87.891 Personal history of nicotine dependence; Z20.822 Contact with and (suspected) exposure to COVID-19
CPT/HCPCS: J3475; S0164

== ENCOUNTER 2022-11-26 08:48 | Observation (INO) | payer MEDICARE ==
[2022-11-26] VITALS (21 sets, daily range): BP systolic 128–165; BP diastolic 60–110
[~2022-11-26] VITALS: Ht 170.2 cm; Wt 58.1 kg
[2022-11-26 09:31] LABS: BASO% 0.2 % (0-3); EOS% 1.3 % (0-8); HEMOGLOBIN 14.8 g/dl (12.0-16.0); IMMATURE GRANULOCYTES 0.2 % (0.0-5.0); LYMPH% 18.5 % (15-41); MEAN CELL VOLUME 97.8 fL CALC (80.0-100.0); MEAN CORPUSCULAR HGB 32.9 pG CALC (26.0-32.0); MEAN CORPUSCULAR HGB CONC 33.6 g/dL CAL (32.0-36.0); MONO% 8.8 % (2-13); NEUT# 12.86 thou/uL (2.00-7.15); RED BLOOD COUNT 4.5 mill/uL (4.20-5.60); RED CELL DISTRI WIDTH 11.4 % (11.5-15.5)
[2022-11-26 10:06] LABS: ALBUMIN 3.5 g/dL (3.2-5.0); ALKALINE PHOSPHATASE 133 u/l (38-126); ANION GAP 7 (6-22 (CALC)); BILIRUBIN, TOTAL 0.3 mg/dL (0.02-1.3); BUN 5 mg/dL (8-23); BUN/CREATININE RATIO 10 (12-20 (CALC)); CARBON DIOXIDE 35 mmol/l (22-30); CHLORIDE 95 mmol/l (95-108); CREATININE 0.5 mg/dL (0.5-1.0); GFR FOR AFR.AMER. > 60 ML/MIN (>=60 (CALC)); GFR OTHER RACES > 60 ML/MIN (>=60 (CALC)); LIPASE 756 u/l (23-300); POTASSIUM 3.8 mmol/l (3.5-5.1); SGOT/AST 47 u/l (9-36); SODIUM 134 mmol/l (137-146)
[2022-11-26 10:09] LABS: TOTAL PROTEIN 6.4 g/dL (6.3-8.2)
[2022-11-26] MEDS ORDERED: PROAIR DIG108 MCG/AC (12:24)
[2022-11-26] MEDS ORDERED: OYSTER SHELL C500 M6 PO (12:25)
[2022-11-26] MEDS ORDERED: MAGNEBIND400 MG PO (12:26)
[2022-11-26 12:57] LABS: URINE BILIRUBIN - DIPSTICK NEGATIVE (NEGATIVE); URINE BLOOD DIPSTICK NEGATIVE (NEGATIVE); URINE GLUCOSE - DIPSTICK NEGATIVE (NEGATIVE); URINE KETONE NEGATIVE (NEGATIVE); URINE LEUK ESTERASE NEGATIVE (NEGATIVE); URINE PROTEIN - DIPSTICK NEGATIVE (NEG-TRACE); URINE SPECIFIC GRAVITY <=1.005; URINE UROBILINOGEN - DIPSTICK 0.2 E.U./dL (0.2)
[2022-11-26 13:01] LABS: URINE COLOR DK. YELLOW; URINE NITRITE - DIPSTICK NEGATIVE (Negative)
[2022-11-27 00:23] VITALS: BP 138/73
[2022-11-27 03:01] VITALS: BP 154/82
[2022-11-27 05:00] VITALS: BP 154/82
[2022-11-27 05:57] VITALS: BP 152/73
[2022-11-27 07:05] LABS: HEMATOCRIT 39.2 % (37.0-47.0); MEAN CELL VOLUME 99.2 fL CALC (80.0-100.0); MEAN CORPUSCULAR HGB 32.9 pG CALC (26.0-32.0); MEAN CORPUSCULAR HGB CONC 33.2 g/dL CAL (32.0-36.0); RED BLOOD COUNT 3.95 mill/uL (4.20-5.60); RED CELL DISTRI WIDTH 11.6 % (11.5-15.5)
[2022-11-27 07:06] LABS: ALKALINE PHOSPHATASE 130 u/l (38-126); AMYLASE 84 u/l (30-110); ANION GAP 7 (6-22 (CALC)); BUN 2 mg/dL (8-23); BUN/CREATININE RATIO 5 (12-20 (CALC)); CARBON DIOXIDE 34 mmol/l (22-30); CHLORIDE 100 mmol/l (95-108); CREATININE 0.5 mg/dL (0.5-1.0); GFR FOR AFR.AMER. > 60 ML/MIN (>=60 (CALC)); GFR OTHER RACES > 60 ML/MIN (>=60 (CALC)); LIPASE 467 u/l (23-300); MAGNESIUM 1.8 mg/dL (1.6-2.3); SGOT/AST 33 u/l (9-36); SODIUM 137 mmol/l (137-146); TOTAL PROTEIN 5.7 g/dL (6.3-8.2)
[2022-11-27 07:07] LABS: BILIRUBIN, TOTAL 0.1 mg/dL (0.02-1.3)
[2022-11-27 09:21] VITALS: BP 141/76
== END 2022-11-27 13:00 | disposition home or self-care (01) ==
LOC: ED 08:48 → ED-I 11:40 → ED 12:07 → MS2 12:08
PROVIDERS: Family Medicine; ADMIT Internal Medicine; ATTEND Internal Medicine
DX: K85.20 Alcohol induced acute pancreatitis without necrosis or infection (principal); K86.0 Alcohol-induced chronic pancreatitis; F10.20 Alcohol dependence, uncomplicated; J44.9 Chronic obstructive pulmonary disease, unspecified; K21.9 Gastro-esophageal reflux disease without esophagitis; K44.9 Diaphragmatic hernia without obstruction or gangrene; D33.2 Benign neoplasm of brain, unspecified; F17.200 Nicotine dependence, unspecified, uncomplicated; M48.00 Spinal stenosis, site unspecified; Z90.49 Acquired absence of other specified parts of digestive tract
CPT/HCPCS: J1650; Q9967